=== PATIENT | male | born 1980 | race Caucasian/White ===

== ENCOUNTER → 2023-12-10 11:02 | Outpatient (BNVA) | payer BC, SELFPAY | PROVIDERS: Visit Provider Podiatrist Foot & Ankle Surgery | DX: M25.572 Pain in left ankle and joints of left foot (principal); M19.072 Primary osteoarthritis, left ankle and foot | CPT/HCPCS: 73600; 73630 ==

== ENCOUNTER 2023-12-10 11:58 | Outpatient (CLI) | payer BC, SELFPAY | END 2023-12-10 11:59 | disposition home or self-care (01) | LOC: SPT 11:59 | PROVIDERS: Visit Provider Podiatrist Foot & Ankle Surgery | DX: Z46.89 Encounter for fitting and adjustment of other specified devices (principal); M19.072 Primary osteoarthritis, left ankle and foot | CPT/HCPCS: 97760; L1902 ==

== ENCOUNTER 2024-02-09 08:14 | Outpatient (CLI) | payer BC, SELFPAY ==
--- NOTE | 2024-02-09 08:45 | MR_ITS ---
WS: [id number] MRI LEFT ANKLE WITHOUT CONTRAST. COMPARISON: 12/10/2023 radiographs. Multiplanar, multisequence imaging is performed without contrast. History: Pain and arthritis. May need ankle replacement. Patient is undergone a prior surgical fusion with screws of the calcaneus, talus and navicular. On th e radiographs the recently obtained there is bony fusion across the subtalar joint. There is a small amount of marrow edema in the calcaneal cuboid articular surfaces and also in the cu neiforms. Loss of normal height of the arch of the foot. Abnormal configuration of the talus. There i s some mild flattening of the talus. Mild narrowing of the tibiotalar joint. Very slight osteochondra l defect involving the distal tibial articular surface. No fractures or marrow edema. Syndesmosis is intact. Achilles tendon is normal. Calcaneal spur. There is a small amount of fluid al west the peroneal tendon sheath as visualized. The tendons themselves appear normal. Flexor hallucis l ongus, flexor digitorum longus and the posterior tibial tendons are normal as visualized. Extensor te ndons are negative. The anterior tibial tendon is negative. Anterior and posterior talofibular ligame nts are thinned but intact. There is a large amount of artifact partially obscuring the deltoid ligam ent. Tendons and ligaments to the midfoot are poorly visualized due to the hardware artifact. MR/MR ankle LT wo con* [id number] IMPRESSION: 1. Patient is status post extensive fusion hardware between the talus, calcane us and navicular. 2. There is a very minimal osteochondral abnormalities noted along the distal tibia. 3. Central ligaments in the foot are obscured by artifact. The anterior and po sterior talofibular ligaments appear intact. 4. Small calcaneal spur. 5. Mild flattening of the normal dome of the talus.
== END 2024-02-09 08:15 | disposition home or self-care (01) ==
LOC: RAD 08:15
PROVIDERS: Visit Provider Podiatrist Foot & Ankle Surgery
DX: M95.8 Other specified acquired deformities of musculoskeletal system (principal); M77.32 Calcaneal spur, left foot; Z98.1 Arthrodesis status
CPT/HCPCS: 73721

== ENCOUNTER → 2024-07-13 08:58 | Outpatient (BNVA) | payer BC, SELFPAY | DX: R05.9 Cough, unspecified (principal); U07.1 COVID-19 | CPT/HCPCS: 87400; 87426 ==

== ENCOUNTER 2025-05-07 03:05 | Emergency (ER) | payer BC, SELFPAY ==
[2025-05-07 03:14] VITALS: BP 122/93; PULSE 65; RESP 20; TEMP 36.8; O2SAT 95; BMI 38.0
[2025-05-07 03:24] VITALS: BP 122/93; PULSE 68; RESP 16; O2SAT 98
--- NOTE | 2025-05-07 03:50 | USR_ITS ---
PROCEDURE INFORMATION: Exam: US Duplex Left Lower Extremity Veins, Limited Exam date and time: 05/07/2025 4:37 AM Age: 44 years old Clinical indication: Pain; Leg, lower; Left; Additional info: L leg swelling, pain, redness TECHNIQUE: Imaging protocol: Real-time duplex ultrasound of the left extremity with 2-D simpson scale, color Doppler flow and spectral waveform analysis including responses to compression and other maneuvers (when performed) with image documentation. Limited exam focused on the left lower extremity veins. COMPARISON: MR ankle LT wo con* [id number] 02/09/2024 8:29 AM FINDINGS: Left deep veins: Unremarkable. The common femoral, femoral, proximal profunda femoral and popliteal veins are patent without thrombus. Normal Doppler waveforms. Normal compressibility and/or augmentation response. Superficial veins: Greater saphenous vein at the saphenofemoral junction is patent without thrombus. Extensive superficial varicosities. Soft tissues: Unremarkable. US/[place] [id number] IMPRESSION: No evidence of deep vein thrombosis.
[2025-05-07 04:20] LABS: Hematocrit 48.8 % (37-53); Hemoglobin 16.10 g/dL (11.27-16.99); Mean Corpuscular HGB Conc 33.0 g/dL (30-55); Mean Corpuscular Hemoglobin 30.9 pg (27-33); Mean Corpuscular Volume 93.7 fl (82-101); Nucleated Red Blood Cells % 0 %; Platelet Count 184 10^3/cmm (157-399); Red Blood Count 5.21 10^6/uL (3.85-5.65); White Blood Count 5.41 10^3/uL (3.29-11.43)
--- NOTE | 2025-05-07 04:20 | ED_ITS ---
HPI - Extremity Problem 2 General: Chief complaint: Extremity Problem,Nontraumatic Stated complaint: left knee vein issue Time Seen by Provider: 05/07/25 03:42 History of Present Illness: Patient is a 44-year-old male who presents with concern for a painful varicose vein in his leg. He reports the varicose veins have been present for many years, but notes that one area became hard, swollen, and very painful to touch since last (approximately 9 days ago). The patient describes the affected area as hot to touch and reports that the swelling was significant enough to limit his ability to bend his leg. He has been self-medicating with ibuprofen, which has provided some relief of symptoms. The patient expresses concern about a possible blood clot. He denies fever, chest pain, or shortness of breath. He has no prior history of blood clots. Related Data Previous Rx's ?Medication ?Instructions ?Recorded doxycycline hyclate 100 mg tablet 100 mg PO BID 10 day s #20 tabs 05/02/25 ibuprofen 800 mg tablet 800 mg PO Q8H PRN pain #30 t abs 05/02/25 Allergies Allergy/AdvReac Type Severity Reaction Status Date / Time No Known Allergies Allergy Verified 05/02/25 10:32 PFS ED 2 PFSH: Social History Smoking and tobacco/nicotine status: never used tobacco/nicotine Physical Exam 2 Const: COMMON NORMALS: no acute distress GENERAL APPEARANCE: cooperative; not ill appearing and not frail appearing HENMT: COMMON NORMALS: normocephalic, atraumatic and Normal external nose present HEAD & SCALP: normocephalic and atraumatic FACE & SINUS: normal facial exam and face symmetric NOSE: Normal external nose present Eye: COMMON NORMALS: Equal, round and reactive pupils present and EOMs intact bilaterally PUPIL: Yes Equal, round and reactive pupils present Neck/C-Spine: GENERAL: Yes trachea midline Chest: CHEST: Yes Symmetrical chest wall rise Resp: COMMON NORMALS: normal respiratory effort, No retractions, No use of accessory muscles and clear to auscultation bilaterally AUSCULTATION: clear to auscultation bilaterally Cardio: COMMON NORMALS: regular rate and regular rhythm RATE: regular rate RHYTHM: regular rhythm Extremity: COMMON NORMALS: no pedal edema NARRATIVE EXTREMITY EXAM: Exam of the left lower extremity reveals no deformity. No knee effusion. There is a tender, red, swollen area superior and lateral to the knee. It follows the path it appears to be venous. No calf tenderness. No popliteal fossa tenderness. Neuro: RASHMI COMA SCALE: document GCS findings [place] coma scale eye opening: Spontaneous [place] coma scale verbal response: Orientated Rashmi coma scale motor response: Obey commands [place] coma scale total score: 15 S ENSORY EXAM: Yes extremities (intact) Psych: COMMON NORMALS: speech normal SPEECH: Yes normal speech Skin: COMMON NORMALS: no rashes or lesions noted GENERAL SKIN EXAM: no rashes or lesions noted Course 2 Vital Signs: Vital signs: Vital Signs Temperature 98.2 F 05/07/25 03:14 Pulse Rate 78 05/07/25 05:37 Respiratory Rate 18 05/07/25 05:37 Blood Pressure 120/84 05/07/25 05:37 Pulse Oximetry 99 05/07/25 05:37 Oxygen Delivery Me thod Room Air 05/07/25 03:24 MDM - Extremity (Nontraumatic) Medical Decision Making 44-year-old male gentleman with superficial thrombophlebitis. Ultrasound is negative for DVT. CBC is normal. He has been on doxycycline and ibuprofen. He will add aspirin 325 mg twice daily to his regimen. He will use compression stockings, at least high. Heat and ice can help as well. He?ll return for any new worsening symptoms. Lab Data 05/07/25 04:05 Radiology Impressions Venous Duplex 05/07/25 03:50 IMPRESSION: No evidence of deep vein thrombosis. Laboratory Results WBC 5.41 10^3/uL (3.29-11.43) 05/07/25 04:05 RBC 5.21 10^6/uL (3.85-5.65) 05/07/25 04:05 Hgb 16.10 g/dL (11.27-16.99) 05/07/25 04:05 Hct 48.8 % (37-53) 05/07/25 04:05 MCV 93.7 fl (82-101) 05/07/25 04:05 MCH 30.9 pg (27-33) 05/07/25 04:05 MCHC 33.0 g/dL (30-55) 05/07/25 04:05 RDW 13.2 % (12.1-15.1) 05/07/25 04:05 Plt Count 184 10^3/cmm (157-399) 05/07/25 04:05 MPV 10.9 fL (7.4-10.4) H 05/07/25 04:05 Neut % (Auto) 55.6 % 05/07/25 04:05 Lymph % (Auto) 30.3 % 05/07/25 04:05 [place] % (Auto) 9.1 % 05/07/25 04:05 Eos % (Auto) 3.7 % 05/07/25 04:05 Baso % (Auto) 0.9 % 05/07/25 04:05 Neut # (Auto) 3.01 10^3/uL (1.8-7.7) 05/07/25 04:05 Lymph # (Auto) 1.6 10^3/uL (0.8-4.8) 05/07/25 04:05 [place] # (Auto) 0.5 10^3/uL (0.2-0.9) 05/07/25 04:05 Eos # (Auto) 0.2 10^3/uL (0.0-0.8) 05/07/25 04:05 Baso # (Auto) 0.1 10^3/uL (0.0-0.1) 05/07/25 04:05 Nucleated RBC % (auto) 0 % 05/07/25 04:05 Nucleated RBCs # 0.0 /100WBC 05/07/25 04:05 ESR 2 mm/hr (0-10) 05/07/25 04:05 Sodium Cancelled 05/07/25 04:05 Potassium Cancelled 05/07/25 04:05 Chloride Cancelled 05/07/25 04:05 Carbon Dioxide Cancelled 05/07/25 04:05 Anion Gap Cancelled 05/07/25 04:05 BUN Cancelled 05/07/25 04:05 Creatinine Cancelled 05/07/25 04:05 GFR Calculation Cancelled 05/07/25 04:05 Glucose Cancelled 05/07/25 04:05 Calculated Osmolality Cancelled 05/07/25 04:05 Calcium Cancelled 05/07/25 04:05 Total Bilirubin Cancelled 05/07/25 04:05 AST Cancelled 05/07/25 04:05 ALT Cancelled 05/07/25 04:05 Alkaline Phosphatase Cancelled 05/07/25 04:05 C-Reactive Protein Cancelled 05/07/25 04:05 Total Protein Cancelled 05/07/25 04:05 Albumin Cancelled 05/07/25 04:05 Globulin Cancelled 05/07/25 04:05 XR interpretation done by ED provider, pending radiology final review Discharge Plan Discharge Patient Disposition: Home Clinical Impression: Superficial thrombophlebitis Condition: Stable Prescriptions: No Action ibuprofen 800 mg tablet 800 mg PO Q8H PRN (Reason: pain) Qty: 30 0RF Rx Instructions: take with food doxycycline hyclate 100 mg tablet 100 mg PO BID 10 Days Qty: 20 0RF Discharge Orders: Discharge ED (Routine); Ordered 05/07/25 Ordered By: Branden Gonzales Referrals: Jonnie Mendez MD [Primary Care Provider, [facility]] - 4-7 days Patient Instructions: Superficial Thrombophlebitis (ED), Opioid Safety, Pain Management, Patient Portal & Jessi Instructions Activity Restrictions/Additional Instructions: Add aspirin 325 mg twice daily to your regimen. Compression stockings, at least thigh-high may help as well. Heat or ice may help with discomfort. Return for problems including worsening swelling, fever, worsening pain despite treatment, etc. See your doctor next week. Call Friday for an appointment. Print Language: Cuban Coding Level of Care Code ED Drafter [employer] for Brii Delacruz
[2025-05-07 05:37] VITALS: BP 120/84; PULSE 78; RESP 18; O2SAT 99
== END 2025-05-07 05:38 | disposition home or self-care (01) ==
PROVIDERS: Emergency Provider Emergency Medicine; PCP Family Medicine
DX: I80.02 Phlebitis and thrombophlebitis of superficial vessels of left lower extremity (principal)
CPT/HCPCS: 36415; 85025; 85651; 93971; 99284

== ENCOUNTER → 2025-06-09 13:33 | Outpatient (BNVA) | payer BC, SELFPAY | PROVIDERS: Visit Provider Family Medicine | DX: Z13.6 Encounter for screening for cardiovascular disorders (principal) | CPT/HCPCS: 80053; 80061; 83036; 84439; 84443; 85025 ==